=== PATIENT | female | born 1950 | race Caucasian/White ===

== ENCOUNTER → 2017-04-27 | Outpatient (CLI) | payer MEDICARE, MEDICAID ==
--- NOTE | 2017-04-27 18:40 | WOMENS IMAGING REPORT ---
EXAM DESCRIPTION: 3D SCREENING MAMMO BILAT COMPLETED DATE/TIME: 04/27/2017 10:08 am REASON FOR STUDY: ROUTINE SCREENING; Z12.31 Z12.31 ENCNTR SCREEN MAMMOGRAM FOR MALIGNANT NEOPLASM O F GIBSON COMPARISON: Multiple since 2009 TECHNIQUE: Standard craniocaudal and mediolateral oblique views of each breast recorded using digita l acquisition and breast tomosynthesis. LIMITATIONS: None. FINDINGS: Findings present which are benign by mammographic criteria. No suspicious masses, calcifi cations or architectural distortion. Pertinent benign findings: Old stereotactic biopsy clip lower inner quadrant left breast. Benign kat ateral breast parenchymal and skin calcifications Read with the assistance of CAD. .[facility] - R2 Cenova Version 1.3 .[facility] - R2 Cenova Version 1.3 .[facility] - R2 Cenova Version 2.4 .[facility] [place] - R2 Cenova Version 2.4 .[facility] - R2 Literacy Specialist Version 9.2 Benign mammographic findings may include one or more of the following: Smooth masses, popcorn/rim/co arse calcifications, asymmetries, post-procedure changes, and lesions with long-standing stability. IMPRESSION: BENIGN MAMMOGRAPHIC FINDINGS. BIRADS 2 BREAST DENSITY: a. The breasts are almost entirely fatty. BIRAD: 2 BENIGN FINDING(S) RECOMMENDATION: RECOMMENDATION: ROUTINE SCREENING Please continue yearly bilateral screening tomosynthesis in April 2018 COMMENT: The patient has been notified of the results by letter per MQSA requirements. Additional no tification policies are in place for contacting patient with suspicious or incomplete findings. Quality ID #225: The [employer] recommends an annual screening mammogram for women aged 40 years or over. This facility utilizes a reminder system to ensure that all patients receive reminder letters, and/or direct phone calls for appointments. This includes reminders for routine scr eening mammograms, diagnostic mammograms, or other Breast Imaging Interventions when appropriate. Th is patient will be placed in the appropriate reminder system. The [employer] (ACR) has developed recommendations for screening MRI of the breast s in certain patient populations, to be used in conjunction with mammography. Breast MRI surveillanc e may be appropriate for women with more than 20% lifetime risk of developing breast cancer as deter mined by genetic testing, significant family history of the disease, or history of mantle radiation f or Hodgkins Disease. ACR Practice Guidelines 2008. DBT Technology DBT is a type of tomographic mammography. With conventional mammography, overlapping breast tissue ma y make lesions difficult to detect, even with good compression. DBT uses an x-ray tube that rotates a round the breast, taking images at different angles. These images are then combined to create thin sl ices of the breast that the radiologist can view as a 3D reconstruction. The Hologic unit can perform full-field digital mammograms (2D imaging); or DBT (3D imaging); or both, in a combination mode that quickly performs both the mammogram and the tomosynthesis scan while the breast is still compressed. PQRS 6045F: Fluoroscopic imaging is not utilized for breast tomosynthesis. TECHNICAL DOCUMENTATION: FINDING NUMBER: (1) ASSESSMENT: (1) JOB ID: [id number] [employer]- All Rights Reserved
== END ==
LOC: WI 09:36
PROVIDERS: ATTEND Internal Medicine
DX: Z12.31 Encounter for screening mammogram for malignant neoplasm of breast (principal)
CPT/HCPCS: 77063; G0202; 77067

== ENCOUNTER 2017-06-30 08:18 | Day surgery (SDC) | payer MEDICARE, MEDICAID ==
[~2017-06-30 08:18] MED LIST: CHONDR SU A NA/HYALUR INTRAOC KIT (SURGICARE) ONE; EPINEPHRINE INJ/PF 1 MG/1 ML AMPULE ONE; KETOROLAC TROMETHAMINE 0.45% 4 DROP/0.4 ML DROPERETTE OS PRN; LIDOCAINE 1% INJ-PF (10 MG/ML) 30 ML SDV ONE
[2017-06-30] MEDS: CYCLOPENTOLATE 0.2%/PHENYLEPHRINE 1% OPH SOLN 2 ML OS PRN ×3 (08:32→08:59)
[2017-06-30] MEDS: TROPICAMIDE 1% OPH SOLN 3 ML OS PRN ×3 (08:32→08:59)
[2017-06-30] MEDS: BESIFLOXACIN HCL 0.6% OPH SUSP 5 ML BOTTLE OS PRN ×4 (08:33→09:23)
[2017-06-30] MEDS: TETRACAINE HCL 0.5% OPH SOLN 2 ML OS PRN ×3 (08:34→09:01)
[2017-06-30] MEDS ORDERED: FENTANYL CITRATE INJ/PF 100 MCG/2 ML AMPUL ONE (08:46)
[2017-06-30] MEDS ORDERED: MIDAZOLAM 2 MG/2 ML INJ ONE (08:46)
--- NOTE | 2017-06-30 22:03 | [facility] DISCHARGE SUMMARY E ---
[facility] Discharge Summary NAME: JOSE JUAN DON AGE: 66Y ADMITTED: 06/30/2017 DISCHARGED: 06/30/2017 HOSPITAL COURSE: This is a 66-year-old patient who underwent cataract extraction of the left eye. DIAGNOSIS: CATARACT, LEFT EYE. She underwent surgery because she was having difficulty seeing small print. DISCHARGE INSTRUCTIONS: She should be on a regular diet. No bending at her waist, no heavy lifting. She should use Besivance, Ilevro, and Durezol at 3 p.m. and 8 p.m. and sleep with a rigid shield. I will see her for her 1 day postoperative tomorrow. DICTATING PHYSICIAN: KWADWO KELLEY M.D. [id number] PHY#: [id number] 2012 ID: [id number] JOB#: [id number] ACCT: [id number] cc:KWADWO KELLEY M.D. >
--- NOTE | 2017-06-30 22:03 | [facility] OPERATIVE REPORT E ---
[facility] Operative Report NAME: JOSE JUAN DON AGE: 66Y DATE OF SURGERY: 06/30/2017 ROOM: PREOPERATIVE DIAGNOSIS: CATARACT, LEFT EYE. POSTOPERATIVE DIAGNOSIS: CATARACT, LEFT EYE. OPERATION: Cataract extraction with intraocular lens implant of the left eye. SURGEON: KWADWO KELLEY M.D. ANESTHESIA: Topical. PROCEDURE: After obtaining appropriate consent, the patient's left eye was prepped and draped in sterile fashion as well as the surgeon in a sterile manner and cataract surgery was started. First a paracentesis blade was used to make a small side-port incision. Viscoelastic was used to inflate the anterior chamber. Next a 2.4 mm incision was made with the paracentesis blade. A continuous capsulorrhexis incision was made using a cystotome and Utrata forceps. Following this hydrodissection was carried out to make the lens fully loose and mobile and it was rotated 90 degrees. Following this, a ikdbjo-wms-fhgobac technique was used to phacoemulsify the lens with a CDE of 7.02. The remaining cortex was removed with irrigation/aspiration. Provisc was instilled into the capsular bag to inflate the bag. A SN60WF, 15.5 diopter lens was placed. The remaining viscoelastic material was removed with irrigation/aspiration. Following this, a 10-0 nylon suture was used to close the incision and it was found to be watertight. Vigamox was instilled in the eye and a protective shield was placed over the eye. The patient returned to the postoperative recovery in stable condition. DICTATING PHYSICIAN: KWADWO KELLEY M.D. [id number] PHY#: [id number] 2012 ID: [id number] JOB#: [id number] ACCT: [id number] cc:KWADWO KELLEY M.D. >
== END 2017-06-30 10:05 | disposition home or self-care (01) ==
LOC: SC 08:18
PROVIDERS: ATTEND Internal Medicine
PROC: 08RK3JZ Replacement of Left Lens with Synthetic Substitute, Percutaneous Approach (ICD-10-PCS; principal; 2017-06-30 09:00)
DX: H25.13 Age-related nuclear cataract, bilateral (principal); M19.90 Unspecified osteoarthritis, unspecified site; I10 Essential (primary) hypertension; E78.00 Pure hypercholesterolemia, unspecified; E11.9 Type 2 diabetes mellitus without complications; H40.023 Open angle with borderline findings, high risk, bilateral; Z79.899 Other long term (current) drug therapy; Z79.4 Long term (current) use of insulin; Z79.84 Long term (current) use of oral hypoglycemic drugs
CPT/HCPCS: 66984; 82962; V2632; J2250; J3490 ×2; A9270; J0171; J3010; 142

== ENCOUNTER 2017-07-21 07:06 | Day surgery (SDC) | payer MEDICARE, MEDICAID ==
[~2017-07-21 07:06] MED LIST changes: -CHONDR SU A NA/HYALUR INTRAOC KIT (SURGICARE) ONE; -EPINEPHRINE INJ/PF 1 MG/1 ML AMPULE ONE; +KETOROLAC TROMETHAMINE 0.45% 4 DROP/0.4 ML DROPERETTE OD PRN; -KETOROLAC TROMETHAMINE 0.45% 4 DROP/0.4 ML DROPERETTE OS PRN; -LIDOCAINE 1% INJ-PF (10 MG/ML) 30 ML SDV ONE
[2017-07-21] MEDS ORDERED: EPINEPHRINE INJ/PF 1 MG/1 ML AMPULE ONE (07:35)
[2017-07-21] MEDS ORDERED: CHONDR SU A NA/HYALUR INTRAOC KIT (SURGICARE) ONE (07:36)
[2017-07-21] MEDS ORDERED: LIDOCAINE 1% INJ-PF (10 MG/ML) 30 ML SDV ONE (07:36)
[2017-07-21] MEDS: TETRACAINE HCL 0.5% OPH SOLN 2 ML OD PRN ×3 (08:10→08:53)
[2017-07-21] MEDS: TROPICAMIDE 1% OPH SOLN 3 ML OD PRN ×3 (08:11→08:34)
[2017-07-21] MEDS: CYCLOPENTOLATE 0.2%/PHENYLEPHRINE 1% OPH SOLN 2 ML OD PRN ×3 (08:11→08:34)
[2017-07-21] MEDS: BESIFLOXACIN HCL 0.6% OPH SUSP 5 ML BOTTLE OD PRN ×3 (08:12→09:13)
[2017-07-21] MEDS ORDERED: MIDAZOLAM 2 MG/2 ML INJ ONE (08:38)
--- NOTE | 2017-07-21 16:34 | [facility] OPERATIVE REPORT E ---
[facility] Operative Report NAME: JOSE JUAN DON AGE: 66Y DATE OF SURGERY: 07/21/2017 ROOM: PREOPERATIVE DIAGNOSIS: CATARACT, RIGHT EYE. POSTOPERATIVE DIAGNOSIS: CATARACT, RIGHT EYE. OPERATION: Cataract extraction with intraocular lens implant of the right eye. SURGEON: KWADWO KELLEY M.D. ANESTHESIA: Topical. TISSUE REMOVED OR ALTERED: *------* PROCEDURE: After obtaining appropriate consent, the patient's right eye was prepped and draped in sterile fashion as well as the surgeon in a sterile manner and cataract surgery was started. First a paracentesis blade was used to make a small side-port incision. Viscoelastic was used to inflate the anterior chamber. Next a 2.4 mm incision was made with the paracentesis blade. A continuous capsulorrhexis incision was made using a cystotome and Utrata forceps. Following this hydrodissection was carried out to make the lens fully loose and mobile and it was rotated 90 degrees. Following this, a abugox-zzu-pwnsiah technique was used to phacoemulsify the lens with a CDE of 6.25. The remaining cortex was removed with irrigation/aspiration. Provisc was instilled into the capsular bag to inflate the bag. A SN60WF, 15.0 diopter lens was placed. The remaining viscoelastic material was removed with irrigation/aspiration. Following this, a 10-0 nylon suture was used to close the incision and it was found to be watertight. Vigamox was instilled in the eye and a protective shield was placed over the eye. The patient returned to the postoperative recovery in stable condition. DICTATING PHYSICIAN: KWADWO KELLEY M.D. [id number] PHY#: [id number] ID: [id number] JOB#: [id number] ACCT: [id number] cc:KWADWO KELLEY M.D. >
--- NOTE | 2017-07-21 17:59 | DISCHARGE SUMMARY E ---
Discharge Summary NAME: JOSE JUAN DON : 1950 AGE: 66Y ADMITTED: 07/21/2017 DISCHARGED:07/21/2017 This is a 66-year-old female who underwent cataract extraction of the right eye. DIAGNOSIS: Cataract, right eye. INDICATIONS: She underwent surgery because she was having difficulty driving due to glare from headlights. DISCHARGE INSTRUCTIONS: She should be on a regular diet. No bending at her waist. No heavy lifting. She should use her Besivance, Ilevro, and Durezol at 3:00 p.m. and 8:00 p.m. and sleep with a rigid shield, and I will see her for 1 day postoperative tomorrow. DICTATING PHYSICIAN: KWADWO KELLEY M.D. [id number] PHY#: [id number] ID: [id number] JOB#: [id number] ACCT: [id number] cc:KWADWO KELLEY M.D. >
== END 2017-07-21 09:52 | disposition home or self-care (01) ==
LOC: SC 07:06
PROVIDERS: ATTEND Internal Medicine
PROC: 08RJ3JZ Replacement of Right Lens with Synthetic Substitute, Percutaneous Approach (ICD-10-PCS; principal; 2017-07-21 09:00)
DX: H25.11 Age-related nuclear cataract, right eye (principal); Z96.1 Presence of intraocular lens; I10 Essential (primary) hypertension; E11.9 Type 2 diabetes mellitus without complications; E66.9 Obesity, unspecified; Z79.899 Other long term (current) drug therapy; Z79.84 Long term (current) use of oral hypoglycemic drugs; Z79.4 Long term (current) use of insulin; Z68.41 Body mass index [BMI] 40.0-44.9, adult
CPT/HCPCS: 66984; 82962; V2632; J2250; J3490 ×2; A9270; J0171; 142

== ENCOUNTER → 2017-09-23 | Outpatient (CLI) | payer MEDICARE, MEDICAID ==
--- NOTE | 2017-09-23 14:54 | RADIOLOGY REPORT (SQ) ---
EXAM DESCRIPTION: BONE SURVEY COMPLETE COMPLETED DATE/TIME: 09/23/2017 2:18 pm REASON FOR STUDY: MONOCLONAL GAMMOPATHY (D47.2) D47.2 MONOCLONAL GAMMOPATHY COMPARISON: None. TECHNIQUE: Images of the axial and proximal appendicular skeleton are obtained, along with lateral s kull and frontal chest films. LIMITATIONS: None. FINDINGS: Bones are osteopenic. No lytic or sclerotic lesions are identified. AP CHEST: No bony findings. Lungs are clear. LATERAL SKULL: No worrisome bone lesions. AP BOTH HUMERI: No worrisome bone lesions. Old healed left humeral head fracture. TWO-VIEW LUMBAR SPINE: No worrisome bone lesions.Chronic appearing central upper endplate depression at L1 without overall loss of height TWO-VIEW THORACIC SPINE: No worrisome bone lesions. Diffuse thoracic spine disc space narrowing and anterior osteophyte formation. No compression deformities TWO VIEW CERVICAL SPINE: No worrisome bone lesions. Benign peripherally calcified left lower lobe t hyroid cyst about 1 cm in size. Degenerative disc changes with disc space loss of height and anterio r osteophyte formation at C5-6. AP PELVIS: No worrisome bone lesions. AP BOTH FEMURS: No worrisome bone lesions. OTHER: Surgical clips post gastric bypass. Bilateral knee medial compartment joint space narrowing. IMPRESSION: NO WORRISOME BONE LESIONS. TECHNICAL DOCUMENTATION: JOB ID: [id number] [employer]- All Rights Reserved Reading location - IP/workstation name: [email or web address]
== END ==
LOC: RAD 13:54
PROVIDERS: ATTEND Internal Medicine
DX: D47.2 Monoclonal gammopathy (principal); M47.892 Other spondylosis, cervical region; M48.04 Spinal stenosis, thoracic region
CPT/HCPCS: 77075

== ENCOUNTER 2017-09-26 08:28 | Day surgery (SDC) | payer MEDICARE, MEDICAID ==
[2017-09-26 10:17] LABS: HEMATOCRIT 24.8 % (36.0-47.0); HEMOGLOBIN 8.7 g/dL (12.0-15.5); MEAN CORPUSCULAR HEMOGLOBIN 34.6 pg (27.0-33.4); MEAN CORPUSCULAR HGB CONC 35.1 g/dL (32.0-36.0); PLATELET COUNT 293 10^3/uL (150-450); RED BLOOD COUNT 2.52 10^6/uL (3.72-5.28); RED CELL DISTRIBUTION WIDTH 17.8 % (11.5-14.0)
[2017-09-26 10:27] LABS: INTERNATIONAL RATION (INR) 1.02
[2017-09-26 10:42] LABS: BLOOD UREA NITROGEN 18 mg/dL (7-20); GLUCOSE 136 mg/dL (75-110)
[2017-09-26 10:58] LABS: MEAN CORPUSCULAR VOLUME 99 fl (80-97)
[2017-09-26] MEDS ORDERED: MIDAZOLAM 2 MG/2 ML INJ ONE (11:06)
[2017-09-26] MEDS ORDERED: FENTANYL CITRATE INJ/PF 100 MCG/2 ML AMPUL ONE (11:06)
[2017-09-26] MEDS ORDERED: LIDOCAINE 1% INJ-PF (10 MG/ML) 30 ML SDV ONE (11:07)
--- NOTE | 2017-09-26 13:27 | RADIOLOGY REPORT (SQ) ---
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 CT Fluoroscopy Time: 3.[address] scanners at this facility use dose modulation, iterative reconstruction, and/or weight based d osing when appropriate to reduce radiation dose to as low as reasonably achievable (ALARA). [facility]: Dose Right [facility]: CareDose [facility]: Dose Right [facility]: Teradose 4D [facility]: [employer] RADIATION DOSE: mGy. FINDINGS: The procedure was discussed with the patient and the patient agreed to the procedure. Prio r to the procedure, a time out was performed to verify the patient's identity and planned procedure. IV sedation was administered and physician direction by the registered nurse using 1 milligrams of Ve rsed and 75 micrograms of fentanyl. Physiologic monitoring was provided before, during, and after sed ation. The total sedation time was 40 minutes minutes. Documentation face to face time, the performing proceduralist, spent monitoring the patient: [address] scanning was performed to localize the percutaneous site for the biopsy approach. After sterile skin prep and local lidocaine for skin and deep tissue anesthesia, a coaxial biopsy nee dle was used to obtain a bone marrow aspirate, and a bone marrow core of tissue. The biopsy tissue wa s received by Dr. Guzman's nurse to be sent out for evaluation. There were no immediate complication s. Pathology is pending at the time of dictation. IMPRESSION: CT GUIDED ASPIRATE AND CORE BIOPSY OF THE RIGHT POSTERIOR ILIAC CREST BONE MARROW PERFOR MED WITHOUT IMMEDIATE COMPLICATION. PATHOLOGY PENDING. IV CONSCIOUS SEDATION WITHOUT COMPLICATION. COMMENT: Quality ID 145: Final reports for procedures using fluoroscopy that document radiation exp osure indices, or exposure time and number of fluorographic images (if radiation exposure indices are not available) Patient medication list reviewed: Yes- Quality ID# [id number]:Eligible professional attests to documenting i n the medical record they obtained, updated, or reviewed the patient's current medications.. TECHNICAL DOCUMENTATION: JOB ID: [id number] Quality ID# 436: Final reports with documentation of one or more dose reduction techniques (e.g., Aut omated exposure control, adjustment of the mA and/or kV according to patient size, use of iterative r econstruction technique) 2010 [employer]- All Rights Reserved Reading location - IP/workstation name: [email or web address]
--- NOTE | 2017-09-26 13:27 | RADIOLOGY REPORT (SQ) ---
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 CT Fluoroscopy Time: 3.[address] scanners at this facility use dose modulation, iterative reconstruction, and/or weight based d osing when appropriate to reduce radiation dose to as low as reasonably achievable (ALARA). [facility]: Dose Right [facility]: CareDose [facility]: Dose Right [facility]: Teradose 4D [facility]: [employer] RADIATION DOSE: mGy. FINDINGS: The procedure was discussed with the patient and the patient agreed to the procedure. Prio r to the procedure, a time out was performed to verify the patient's identity and planned procedure. IV sedation was administered and physician direction by the registered nurse using 1 milligrams of Ve rsed and 75 micrograms of fentanyl. Physiologic monitoring was provided before, during, and after sed ation. The total sedation time was 40 minutes minutes. Documentation face to face time, the performing proceduralist, spent monitoring the patient: [address] scanning was performed to localize the percutaneous site for the biopsy approach. After sterile skin prep and local lidocaine for skin and deep tissue anesthesia, a coaxial biopsy nee dle was used to obtain a bone marrow aspirate, and a bone marrow core of tissue. The biopsy tissue wa s received by Dr. Guzman's nurse to be sent out for evaluation. There were no immediate complication s. Pathology is pending at the time of dictation. IMPRESSION: CT GUIDED ASPIRATE AND CORE BIOPSY OF THE RIGHT POSTERIOR ILIAC CREST BONE MARROW PERFOR MED WITHOUT IMMEDIATE COMPLICATION. PATHOLOGY PENDING. IV CONSCIOUS SEDATION WITHOUT COMPLICATION. COMMENT: Quality ID 145: Final reports for procedures using fluoroscopy that document radiation exp osure indices, or exposure time and number of fluorographic images (if radiation exposure indices are not available) Patient medication list reviewed: Yes- Quality ID# 130:Eligible professional attests to documenting i n the medical record they obtained, updated, or reviewed the patient's current medications.. TECHNICAL DOCUMENTATION: JOB ID: [id number] Quality ID# 436: Final reports with documentation of one or more dose reduction techniques (e.g., Aut omated exposure control, adjustment of the mA and/or kV according to patient size, use of iterative r econstruction technique) 2010 [employer]- All Rights Reserved Reading location - IP/workstation name: [facility]
[2017-09-26 14:57] VITALS: BP 128/62
== END 2017-09-26 14:05 | disposition home or self-care (01) ==
LOC: RAD 08:28
PROVIDERS: ATTEND Internal Medicine
DX: D47.2 Monoclonal gammopathy (principal); D64.9 Anemia, unspecified; Z79.899 Other long term (current) drug therapy; Z79.01 Long term (current) use of anticoagulants
CPT/HCPCS: 36415; 84520; 82565; 82947; 85027; 85610; 85730; 38221; 77012; J2250; J3010; J3490

== ENCOUNTER → 2018-05-17 | Outpatient (CLI) | payer MEDICARE, MEDICAID ==
--- NOTE | 2018-05-17 09:41 | RADIOLOGY REPORT (SQ) ---
EXAM DESCRIPTION: CT CHEST WITH; CT ABD/PELVIS WITH IV ORAL COMPLETED DATE/TIME: 05/17/2018 9:07 am REASON FOR STUDY: UNSPEC ABD PAIN (R10.9), PELVIC PAIN (R10.2), CHEST PAIN (R07.9) R10.9 UNSPECIFIE D ABDOMINAL PAIN R10.2 PELVIC AND PERINEAL PAIN R07.9 CHEST PAIN, UNSPECIFIED COMPARISON: None. CONTRAST TYPE AND DOSE: contrast/concentration: Isovue 350.00 mg/ml; Total Contrast Delivered: 100.0 ml; Total Saline Delivered: 72.0 ml RENAL FUNCTION: 1.3 creatinine TECHNIQUE: CT scan of the chest performed using helical scanning technique with dynamic intravenous contrast injection. Images reviewed with lung, soft tissue and bone windows. Reconstructed coronal a nd sagittal MPR images reviewed. All images stored on PACS. CT scan of the abdomen and pelvis performed with intravenous and with oral contrastusing helical scan galilea technique with dynamic intravenous contrast injection. Images reviewed with lung, soft tissue a nd bone windows. Reconstructed coronal and sagittal MPR images reviewed. Delayed images for evaluat ion of the urinary system also acquired and evaluated. All images stored on PACS. All CT scanners at this facility use dose modulation, iterative reconstruction, and/or weight based d osing when appropriate to reduce radiation dose to as low as reasonably achievable (ALARA). [facility]: Dose Right [facility]: CareDose [facility]: Dose Right [facility]: Teradose 4D [facility]: [employer] RADIATION DOSE: CT Rad equipment meets quality standard of care and radiation dose reduction techniq ues were employed. CTDIvol: 21.8 - 28.4 mGy. DLP: 3822 mGy-cm. . LIMITATIONS: None. FINDINGS: CHEST: LUNGS AND PLEURA: No opacities, nodules, masses. No pneumothorax. No effusions. HILAR AND MEDIASTINAL STRUCTURES: No identified masses or abnormal nodes. HEART AND VASCULAR STRUCTURES: No aneurysm or dissection. No central pulmonary emboli. No pericardi al effusion. HARDWARE: None. THYROID AND OTHER SOFT TISSUES: Normal size but nodular thyroid with small calcified masses. BONES: No significant finding. OTHER: No other significant finding. ABDOMEN AND PELVIS: LIVER: Normal size. No masses. No dilated ducts. SPLEEN: Enlarged at almost 17 cm craniocaudal. No mass evident. PANCREAS: 1.3 cm circumscribed low-density probable cyst along the pancreatic tail. No duct dilatati on. Pancreas otherwise unremarkable. No regional inflammatory changes. GALLBLADDER: Surgically absent. ADRENAL GLANDS: No significant masses or asymmetry. RIGHT KIDNEY AND URETER: No solid masses. No significant calcification. No hydronephrosis or hydroure ter. LEFT KIDNEY AND URETER: No solid masses. No significant calcification. No hydronephrosis or hydrouret er. AORTA AND VESSELS: No aneurysm. No dissection. Renal arteries, SMA, celiac without stenosis. RETROPERITONEUM: No retroperitoneal adenopathy, hemorrhage or masses. BOWEL AND PERITONEAL CAVITY: Status post gastric bypass. Diverticulosis in the distal colon but no a ctive diverticulitis suggested. No small bowel obstruction. No ascites or abnormal gas. APPENDIX: Normal. ABDOMINAL WALL: No masses. No hernias. PELVIS: No mass or free fluid. Normal bladder. BONES: No suggestion of acute fracture or bone lesion. Osteopenic. Spondylosis. OTHER: No other significant finding. IMPRESSION: 1. No acute or suspicious thoracic abnormality allowing for nodular thyroid. Ultrasound if warranted . 2. Small cystic mass along the pancreatic tail. This measures just over 1 cm. The pancreas is other joiner normal. Given the patient's age and the size of the lesion, consider surveillance imaging at 2 year intervals out to 10 years. Ideally, this would be performed with pancreatic protocol CT or MRI. 3. Splenomegaly. 4. Other findings as above. TECHNICAL DOCUMENTATION: JOB ID: [id number] Quality ID # 436: Final reports with documentation of one or more dose reduction techniques (e.g., Au tomated exposure control, adjustment of the mA and/or kV according to patient size, use of iterative reconstruction technique) 2010 [employer]- All Rights Reserved Reading location - IP/workstation name: [email or web address]
[2018-05-23 09:18] LABS: HEMATOCRIT 26.4 % (36.0-47.0); HEMOGLOBIN 9.4 g/dL (12.0-15.5); MEAN CORPUSCULAR HEMOGLOBIN 34.1 pg (27.0-33.4); MEAN CORPUSCULAR HGB CONC 35.8 g/dL (32.0-36.0); PLATELET COUNT 360 10^3/uL (150-450); RED BLOOD COUNT 2.77 10^6/uL (3.72-5.28); RED CELL DISTRIBUTION WIDTH 17.1 % (11.5-14.0); WHITE BLOOD COUNT 5.7 10^3/uL (4.0-10.5)
[2018-05-23 09:23] LABS: INTERNATIONAL RATION (INR) 1.02; PROTHROMBIN TIME 13.9 SEC (11.4-15.4)
[2018-05-23 09:30] LABS: MEAN CORPUSCULAR VOLUME 95 fl (80-97)
[2018-05-23 09:41] LABS: BLOOD UREA NITROGEN 28 mg/dL (7-20)
[2018-05-31 07:06] VITALS: BP 140/68
== END ==
LOC: RAD 08:07
PROVIDERS: ATTEND Internal Medicine
DX: R10.9 Unspecified abdominal pain (principal); R10.2 Pelvic and perineal pain; R07.9 Chest pain, unspecified
CPT/HCPCS: 36415; 71260; 74177; 82565; 84520; 85027; 85610; 85730

== ENCOUNTER 2018-05-23 08:42 | Day surgery (SDC) | payer MEDICARE, MEDICAID ==
[2018-05-23] MEDS ORDERED: FENTANYL CITRATE INJ/PF 100 MCG/2 ML AMPUL ONE (10:52)
[2018-05-23] MEDS ORDERED: LIDOCAINE 1% INJ-PF (10 MG/ML) 30 ML SDV ONE (10:52)
[2018-05-23] MEDS ORDERED: MIDAZOLAM 2 MG/2 ML INJ ONE (10:52)
--- NOTE | 2018-05-23 12:05 | RADIOLOGY REPORT (SQ) ---
EXAM DESCRIPTION: CT BIOPSY BONE MARROW, NEEDLE; CT NEEDLE PLACEMENT COMPLETED DATE/TIME: 05/23/2018 11:31 am REASON FOR STUDY: MONOCLONAL GAMMOPATHY; MONOCLONAL GAMMOPATHY, BONE MARROW BX D47.2 MONOCLONAL SANIYA MOPATHY COMPARISON: None. TECHNIQUE: CT guided biopsy of the right iliac crest bone marrow performed with conscious sedation. CT Fluoroscopy Time: [address] scanners at this facility use dose modulation, iterative reconstruction, and/or weight based d osing when appropriate to reduce radiation dose to as low as reasonably achievable (ALARA). [facility]: Dose Right [facility]: CareDose [facility]: Dose Right [facility]: Teradose 4D [facility]: [employer] RADIATION DOSE: CT Rad equipment meets quality standard of care and radiation dose reduction techniq ues were employed. CTDIvol: 4.0 - 20.1 mGy. DLP: 386 mGy-cm.mGy. FINDINGS: After obtaining informed consent and explaining the risks and benefits of conscious sedati on,the patient agreed to the procedure. Prior to the procedure, a time out was performed to verify th e patient's identity and planned procedure. IV conscious sedation was administered and physician direction by the registered nurse using 1 millig kate of Versed and 75 micrograms of fentanyl. Physiologic monitoring was provided before, during, and after sedation. The total sedation time was 30 minutes. Documentation face to face time, the performing proceduralist, spent monitoring the patient: [address] scanning was performed to localize the percutaneous site for the biopsy approach. After sterile skin prep and local lidocaine for skin and deep tissue anesthesia, a coaxial biopsy nee dle was used to obtain a bone marrow aspirate, and a bone marrow core of tissue. The biopsy tissue wa s received by Dr. Guzman's nurse to be sent out for evaluation. There were no immediate complication s. Pathology is pending at the time of dictation. IMPRESSION: CT GUIDED ASPIRATE AND CORE BIOPSY OF THE RIGHT POSTERIOR ILIAC CREST BONE MARROW PERFOR MED WITHOUT IMMEDIATE COMPLICATION. PATHOLOGY PENDING. IV CONSCIOUS SEDATION WITHOUT COMPLICATION. COMMENT: Quality ID 145: Final reports for procedures using fluoroscopy that document radiation exp osure indices, or exposure time and number of fluorographic images (if radiation exposure indices are not available) Patient medication list reviewed: Yes- Quality ID# [id number]:Eligible professional attests to documenting i n the medical record they obtained, updated, or reviewed the patient's current medications.. TECHNICAL DOCUMENTATION: JOB ID: [id number] Quality ID# 436: Final reports with documentation of one or more dose reduction techniques (e.g., Aut omated exposure control, adjustment of the mA and/or kV according to patient size, use of iterative r econstruction technique) 2010 [employer]- All Rights Reserved Reading location - IP/workstation name: [facility]
--- NOTE | 2018-05-23 12:05 | RADIOLOGY REPORT (SQ) ---
EXAM DESCRIPTION: CT BIOPSY BONE MARROW, NEEDLE; CT NEEDLE PLACEMENT COMPLETED DATE/TIME: 05/23/2018 11:31 am REASON FOR STUDY: MONOCLONAL GAMMOPATHY; MONOCLONAL GAMMOPATHY, BONE MARROW BX D47.2 MONOCLONAL SANIYA MOPATHY COMPARISON: None. TECHNIQUE: CT guided biopsy of the right iliac crest bone marrow performed with conscious sedation. CT Fluoroscopy Time: [address] scanners at this facility use dose modulation, iterative reconstruction, and/or weight based d osing when appropriate to reduce radiation dose to as low as reasonably achievable (ALARA). [facility]: Dose Right [facility]: CareDose [facility]: Dose Right [facility]: Teradose 4D [facility]: aCon RADIATION DOSE: CT Rad equipment meets quality standard of care and radiation dose reduction techniq ues were employed. CTDIvol: 4.0 - 20.1 mGy. DLP: 386 mGy-cm.mGy. FINDINGS: After obtaining informed consent and explaining the risks and benefits of conscious sedati on,the patient agreed to the procedure. Prior to the procedure, a time out was performed to verify th e patient's identity and planned procedure. IV conscious sedation was administered and physician direction by the registered nurse using 1 millig kate of Versed and 75 micrograms of fentanyl. Physiologic monitoring was provided before, during, and after sedation. The total sedation time was 30 minutes. Documentation face to face time, the performing proceduralist, spent monitoring the patient: [address] scanning was performed to localize the percutaneous site for the biopsy approach. After sterile skin prep and local lidocaine for skin and deep tissue anesthesia, a coaxial biopsy nee dle was used to obtain a bone marrow aspirate, and a bone marrow core of tissue. The biopsy tissue wa s received by Dr. Guzman's nurse to be sent out for evaluation. There were no immediate complication s. Pathology is pending at the time of dictation. IMPRESSION: CT GUIDED ASPIRATE AND CORE BIOPSY OF THE RIGHT POSTERIOR ILIAC CREST BONE MARROW PERFOR MED WITHOUT IMMEDIATE COMPLICATION. PATHOLOGY PENDING. IV CONSCIOUS SEDATION WITHOUT COMPLICATION. COMMENT: Quality ID [id number]: Final reports for procedures using fluoroscopy that document radiation exp osure indices, or exposure time and number of fluorographic images (if radiation exposure indices are not available) Patient medication list reviewed: Yes- Quality ID# [id number]:Eligible professional attests to documenting i n the medical record they obtained, updated, or reviewed the patient's current medications.. TECHNICAL DOCUMENTATION: JOB ID: [id number] Quality ID# [id number]: Final reports with documentation of one or more dose reduction techniques (e.g., Aut omated exposure control, adjustment of the mA and/or kV according to patient size, use of iterative r econstruction technique) 2010 [employer]- All Rights Reserved Reading location - IP/workstation name: [facility]
[2018-05-26 15:57] VITALS: BP 136/65
== END 2018-05-23 14:45 | disposition home or self-care (01) ==
LOC: RAD 08:42
PROVIDERS: ATTEND Internal Medicine
DX: D47.2 Monoclonal gammopathy (principal); D64.9 Anemia, unspecified
CPT/HCPCS: 82962; 38221; 77012; J2250; J3010; J3490

== ENCOUNTER 2018-07-24 12:00 | Outpatient (CLI) | payer MEDICARE, MEDICAID ==
[~2018-07-24 12:00] MED LIST changes: +ACETAMINOPHEN 325 MG TABLET PO PRN; +DIPHENHYDRAMINE HCL 25 MG CAPSULE PO PRN; +FUROSEMIDE INJ/PF 20 MG/2 ML SDV IV PRN; -KETOROLAC TROMETHAMINE 0.45% 4 DROP/0.4 ML DROPERETTE OD PRN
[2018-07-24 13:17] LABS: HEMATOCRIT 20.8 % (36.0-47.0); MEAN CORPUSCULAR HEMOGLOBIN 33.4 pg (27.0-33.4); MEAN CORPUSCULAR HGB CONC 35.1 g/dL (32.0-36.0); MEAN CORPUSCULAR VOLUME 95 fl (80-97); PLATELET COUNT 307 10^3/uL (150-450); RED BLOOD COUNT 2.19 10^6/uL (3.72-5.28); RED CELL DISTRIBUTION WIDTH 18.3 % (11.5-14.0); WHITE BLOOD COUNT 5.1 10^3/uL (4.0-10.5)
[2018-07-24 13:19] LABS: HEMOGLOBIN 7.3 g/dL (12.0-15.5)
[2018-07-24] MEDS ORDERED: NORMAL SALINE 250 ML IV PRN (13:30)
[2018-07-24 21:46] VITALS: BP 162/78
== END 2018-07-24 21:55 | disposition home or self-care (01) ==
LOC: II 12:00 → 2N 12:08 → II 21:55
PROVIDERS: ATTEND Internal Medicine
PROC: 30233N1 Transfusion of Nonautologous Red Blood Cells into Peripheral Vein, Percutaneous Approach (ICD-10-PCS; principal; 2018-07-24)
DX: D64.9 Anemia, unspecified (principal)
CPT/HCPCS: 86900; 86901; 36415; 36430; 86850; 86920; P9016; A9270 ×2; J7050

== ENCOUNTER 2018-12-11 11:52 | Outpatient (CLI) | payer MEDICARE, MEDICAID ==
[2018-12-11 12:27] LABS: HEMATOCRIT 19.8 % (36.0-47.0); MEAN CORPUSCULAR HEMOGLOBIN 37.3 pg (27.0-33.4); MEAN CORPUSCULAR HGB CONC 35.3 g/dL (32.0-36.0); MEAN CORPUSCULAR VOLUME 106 fl (80-97); PLATELET COUNT 331 10^3/uL (150-450); RED BLOOD COUNT 1.87 10^6/uL (3.72-5.28); RED CELL DISTRIBUTION WIDTH 15.9 % (11.5-14.0); WHITE BLOOD COUNT 5.5 10^3/uL (4.0-10.5)
[2018-12-11] MEDS ORDERED: NORMAL SALINE 250 ML IV PRN (13:23)
[2018-12-11] MEDS ORDERED: FUROSEMIDE INJ/PF 20 MG/2 ML SDV IV PRN (13:24)
[2018-12-11] MEDS ORDERED: ACETAMINOPHEN 325 MG TABLET PO PRN (13:24)
[2018-12-11] MEDS ORDERED: DIPHENHYDRAMINE HCL 25 MG CAPSULE PO PRN (13:24)
[2018-12-11 21:46] VITALS: BP 146/64
== END 2018-12-11 21:55 | disposition home or self-care (01) ==
LOC: II 11:52 → 4N 11:59 → II 21:55
PROVIDERS: ATTEND Internal Medicine
PROC: 30233N1 Transfusion of Nonautologous Red Blood Cells into Peripheral Vein, Percutaneous Approach (ICD-10-PCS; principal; 2018-12-11)
PROC: 3E033GC Introduction of Other Therapeutic Substance into Peripheral Vein, Percutaneous Approach (ICD-10-PCS; 2018-12-11)
DX: D64.9 Anemia, unspecified (principal)
CPT/HCPCS: 86900; 86901; 36430; 86850; 86920; 96374; P9016; A9270 ×2; J1940

== ENCOUNTER 2019-01-10 07:48 | Outpatient (CLI) | payer MEDICARE, MEDICAID ==
[~2019-01-10 07:48] MED LIST changes: -FUROSEMIDE INJ/PF 20 MG/2 ML SDV IV PRN
[2019-01-10 08:21] LABS: MEAN CORPUSCULAR HEMOGLOBIN 33.6 pg (27.0-33.4); MEAN CORPUSCULAR HGB CONC 34.7 g/dL (32.0-36.0); PLATELET COUNT 315 10^3/uL (150-450); RED BLOOD COUNT 2.06 10^6/uL (3.72-5.28); RED CELL DISTRIBUTION WIDTH 24.3 % (11.5-14.0); WHITE BLOOD COUNT 4.4 10^3/uL (4.0-10.5)
[2019-01-10 08:24] LABS: HEMOGLOBIN 6.9 g/dL (12.0-15.5)
[2019-01-10 08:44] LABS: MEAN CORPUSCULAR VOLUME 97 fl (80-97)
[2019-01-10] MEDS ORDERED: NORMAL SALINE 250 ML IV PRN (08:54)
[2019-01-10 13:20] VITALS: BP 128/64
== END 2019-01-10 14:20 | disposition home or self-care (01) ==
LOC: LAB 07:48 → 2N 07:53 → LAB 14:20
PROVIDERS: ATTEND Internal Medicine
PROC: 30233N1 Transfusion of Nonautologous Red Blood Cells into Peripheral Vein, Percutaneous Approach (ICD-10-PCS; principal; 2019-01-10)
DX: N18.9 Chronic kidney disease, unspecified (principal); D63.1 Anemia in chronic kidney disease
CPT/HCPCS: 86900; 86901; 36430; 86850; 86920; P9016; A9270 ×2; J7050

== ENCOUNTER → 2019-02-13 | Outpatient (CLI) | payer MEDICARE, MEDICAID ==
[~2019-02-13] MED LIST changes: -ACETAMINOPHEN 325 MG TABLET PO PRN; -DIPHENHYDRAMINE HCL 25 MG CAPSULE PO PRN; +REGADENOSON INJ 0.4 MG/5 ML DISP.SYRIN IV ONE
--- NOTE | 2019-02-13 19:30 | DRAGON STRESS TEST REPORT ---
Rest/stress single isotope Cardiolite stress imaging using IV Lexiscan and gated SPECT imaging. Indication: Assess exertional chest pains, exertional dyspnea. Clinical history: this 68 years old morbid obese female, height 62 inches, weighing 238 pounds, coronary risk factors of family history NV, hypertension hyper cholesterolemia, diabetes, with current symptomatology of dull chest pains with exercise, and exertional dyspnea but is noted to have a hemoglobin of 8.8 posttransfusion recently, also has supraventricular tachycardia. Report: Patient received IV Lexiscan 0.4 mg infused over 10 seconds and flushed. The resting heart rate was 84 bpm, and increased to 112 bpm at end infusion resting blood pressure was 128/59, and increased to 144/62 at end infusion. The patient has symptoms of flushing but no chest pains and no shortness of breath. The symptoms subsided spontaneously. The resting 12-lead EKG showed normal sinus rhythm 84 bpm, T inversion in the lateral leads seen. 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 At end infusion, no change in lateral T wave inversions. Myocardial perfusion imaging was performed at rest 60 minutes after the injection of 14.59 mCi of Cardiolite. 10 seconds after the IV Lexiscan injection, patient was injected with 45.4 mCi of Cardiolite and flushed. Gated poststress tomographic imaging was performed 60 minutes after stress. Findings: The overall quality of the study is poor, this is due to patient's morbid obesity, severe bilateral breast attenuation, and the nonavailability of soft tissue attenuation software correction which should be used in this type of patient, as the use of a 2-day protocol instead of a 1 day rest-stress protocol. Myocardial perfusion imaging is abnormal. There is a moderate area of IV Lexiscan induced reversible ischemia in the basal inferior wall. There is a much larger fixed perfusion defect in the apical anterior wall, and the basal inferolateral wall. There is severe reduced motion contraction of the apex, apical anterior wall, and basal lateral wall and basal inferior wall. Overall left ventricular systolic function was mildly impaired with LVEF post- stress of 49%, and a TID ratio of 0.91. No prior study for comparison. Impression 1. Technically difficult study due to morbid obesity, nonavailability of soft tissue attenuation software. This reduces the specificity of the imaging results. 2. Suspect multivessel disease, consider left heart catheterization to confirm impression. Dr. Jack Mariscal. [facility]
== END ==
LOC: RAD 06:29
PROVIDERS: ATTEND Internal Medicine Cardiovascular Disease
DX: R07.9 Chest pain, unspecified (principal)
CPT/HCPCS: 93017; 78452; A9500; J2785; Q9969

== ENCOUNTER 2019-03-21 12:21 | Outpatient (CLI) | payer MEDICARE, MEDICAID ==
[~2019-03-21 12:21] MED LIST changes: +ACETAMINOPHEN 325 MG TABLET PO PRN; +DIPHENHYDRAMINE HCL 25 MG CAPSULE PO PRN; +FUROSEMIDE INJ/PF 20 MG/2 ML SDV IV PRN; -REGADENOSON INJ 0.4 MG/5 ML DISP.SYRIN IV ONE
[2019-03-21 12:59] LABS: MEAN CORPUSCULAR HEMOGLOBIN 34.1 pg (27.0-33.4); MEAN CORPUSCULAR HGB CONC 35.3 g/dL (32.0-36.0); MEAN CORPUSCULAR VOLUME 97 fl (80-97); PLATELET COUNT 310 10^3/uL (150-450); RED BLOOD COUNT 2.28 10^6/uL (3.72-5.28); RED CELL DISTRIBUTION WIDTH 21.1 % (11.5-14.0); WHITE BLOOD COUNT 5.8 10^3/uL (4.0-10.5)
[2019-03-21 13:01] LABS: HEMOGLOBIN 7.8 g/dL (12.0-15.5)
[2019-03-21] MEDS ORDERED: NORMAL SALINE 250 ML IV PRN (13:30)
[2019-03-21 17:58] VITALS: BP 141/50
== END 2019-03-21 18:05 | disposition home or self-care (01) ==
LOC: LAB 12:21 → II 12:21 → 2N 12:59 → LAB 12:59 → II 18:05 → LAB 18:05 → EDSTATUS 03-27 10:15
PROVIDERS: ATTEND Internal Medicine
PROC: 30233N1 Transfusion of Nonautologous Red Blood Cells into Peripheral Vein, Percutaneous Approach (ICD-10-PCS; principal; 2019-03-21)
DX: D64.9 Anemia, unspecified (principal)
CPT/HCPCS: 86900; 86901; 36430; 86850; 86920; P9016; A9270 ×2

== ENCOUNTER 2019-05-04 21:43 | Emergency (ER) | payer MEDICARE, MEDICAID ==
--- NOTE | 2019-05-04 22:57 | RADIOLOGY REPORT (SQ) ---
EXAM DESCRIPTION: XR FEMUR 2 VIEWS COMPLETED DATE/TME: 05/04/2019 00:00 CLINICAL HISTORY: 68 years, Female, fall; inability to stand COMPARISON: None. NUMBER OF VIEWS: 4 TECHNIQUE: 4 views of the right femur LIMITATIONS: None. FINDINGS: Osteopenia. Degenerative change of the knee and hip. Negative for acute fracture or dislocation IMPRESSION: No acute osseous abnormality copyright 2010 [employer]- All Rights Reserved
--- NOTE | 2019-05-04 22:58 | RADIOLOGY REPORT (SQ) ---
EXAM DESCRIPTION: XR ANKLE 3 OR MORE VIEWS COMPLETED DATE/TME: 05/04/2019 00:00 CLINICAL HISTORY: 68 years Female ,fall; inability to stand COMPARISON: None. TECHNIQUE: Right ankle, 3 view FINDINGS: No acute fractures or dislocations are identified. No osseous destructive lesions. Large calcaneal spur. Ankle mortise appears intact. No ankle joint effusion noted. IMPRESSION: No acute fracture is identified.
[2019-05-04] MEDS ORDERED: NORMAL SALINE 1000 ML 1,000 ML IV ONE (23:24)
--- NOTE | 2019-05-04 23:31 | ER Document Report ---
ED General - General Chief Complaint: Fall Stated Complaint: FALL Time Seen by Provider: 05/04/19 22:40 Primary Care Provider: LUIS F LECHUGA MD [Primary Care Provider] - Follow up as needed TRAVEL OUTSIDE OF THE [place] IN LAST 30 DAYS: No - HPI Notes: 68-year-old female stepped on a child's toy on the floor at home about 1 hour ago and lost her balance and fell striking her right hip and right ankle on the floor. She denies injury to the head or neck. Pain primarily and right hip and right ankle. EMS was unable to obtain IV during transport and apparently gave the patient 2 doses of fentanyl intranasal. Presently reports pain 7 out of 10. Patient states she is not currently taking any type of anticoagulant. Pertinent prior history: Diabetes mellitus type 2 Hyperlipidemia Hypertension - Related Data Allergies/Adverse Reactions: No Known Allergies Allergy (Verified 05/23/18 08:43) Past Medical History - General Information source: Patient, Relative - Social History Smoking Status: Never Smoker Chew tobacco use (# tins/day): No Frequency of alcohol use: None Drug Abuse: None Family History: None Patient has suicidal ideation: No Patient has homicidal ideation: No - Past Medical History Cardiac Medical History: Reports: Hx Hypercholesterolemia, Hx Hypertension Denies: Hx Congestive Heart Failure, Hx Coronary Artery Disease, Hx Heart Attack Pulmonary Medical History: Denies: Hx Asthma, Hx Bronchitis, Hx COPD, Hx Pneumonia, Hx Tuberculosis Neurological Medical History: Denies: Hx Cerebrovascular Accident, Hx Seizures, Hx Parkinson's Disease Endocrine Medical History: Reports: Hx Diabetes Mellitus Type 2 Renal/ Medical History: Denies: Hx End Stage Renal Disease, Hx Kidney Stones GI Medical History: Reports: Hx Gastroesophageal Reflux Disease. Denies: Hx Cirrhosis, Hx Hepatitis, Hx Hiatal Hernia, Hx Ulcer Musculoskeletal Medical History: Reports Hx Arthritis, Denies Hx Multiple Sclerosis Psychiatric Medical History: Reports: Hx Depression Denies: Hx Bipolar Disorder, Hx Schizophrenia Infectious Medical History: Denies: Hx Hepatitis Past Surgical History: Reports: Hx Abdominal Surgery - jaclyn in stomach, Hx Section, Hx Cholecystectomy. Denies: Hx Hysterectomy, Hx Mastectomy, Hx Open Heart Surgery, Hx Pacemaker - Immunizations Hx Diphtheria, Pertussis, Tetanus Vaccination: No Review of Systems - Review of Systems Notes: Constitutional: Negative for fever. HENT: Negative for sore throat. Eyes: Negative for visual changes. Cardiovascular: Negative for chest pain. Respiratory: Negative for shortness of breath. Gastrointestinal: Negative for abdominal pain, vomiting or diarrhea. Genitourinary: Negative for dysuria. Musculoskeletal: As per HPI. Skin: Negative for rash. Neurological: Negative for headaches, weakness or numbness. 10 point ROS negative except as marked above and in HPI. Physical Exam - Vital signs Vitals: Resp BP Pulse Ox 19 179/76 H 98 05/04/19 21:52 05/04/19 21:52 05/04/19 21:52 - Notes Notes: GENERAL: Female patient approximately stated age moderately obese appearing in mild distress due to pain. SKIN: Good turgor no rashes. HEAD: Normocephalic atraumatic. EYES: PERRLA. EOMI. Conjunctivae and sclerae clear. EARS: CANALS AND TMS CLEAR. NOSE: CLEAR. MOUTH: Moist mucosa. Good dentition. No stridor or edema. No drooling. NECK: Supple. No masses or thyromegaly. No adenopathy. Carotids 2+ without bruits. No JVD. BACK: Symmetrical without tenderness. CHEST: Respirations unlabored. Breath sounds clear and symmetrical. HEART: Regular rhythm. No murmur gallop or rub. ABDOMEN: Soft nontender without masses, organomegaly or rebound. Bowel sounds normally active. No bruits. GENITALIA: Deferred. EXTREMITIES: Very tender over right hip and persist movement in all planes. The right lower extremity appears shortened and externally rotated no edema. No calf tenderness. Cap refill less than 1.5 seconds. Dorsalis pedis and posterior tibial pulses 3+ and symmetrical. NEUROLOGICAL: GCS 15. Alert and oriented x3. Fluent speech. Cranial nerves II through XII intact. Sensorimotor and cerebellar normal. Normal tone. PSYCHIATRIC: Appropriate affect. Course - Re-evaluation Re-evalutation: 05/04/19 23:30 Plain films of the right femur and right ankle reported as negative per radiologist. I am concerned about occult fracture of the right hip and will obtain a CT scan. Patient will remain n.p.o. and we will give her some IV fentanyl and normal saline. 05/05/19 01:09 Good pain relief with IV fentanyl. No fractures identified on imaging. Patient is chronically anemic and is near her usual baseline of 7 g of hemoglobin. No evidence of any acute bleeding. She is more comfortable and feels comfortable going home at this point but will have some difficulty with ambulation and needs a walker. We do not have a walker tonight after discussion with patient and her family is agreed that she will remain in the ER overnight. A.m. consult with social work/case management to be obtained for needs assessment. - Vital Signs Vital signs: Temp Pulse Resp BP Pulse Ox 98.1 F 86 15 160/51 H 100 05/04/19 21:57 05/04/19 21:57 05/05/19 00:00 05/04/19 22:01 05/05/19 00:00 - Laboratory Result Diagrams: 05/04/19 23:54 05/04/19 23:54 Laboratory results interpreted by me: 05/04/19 05/04/19 23:54 23:54 RBC 1.92 L Hgb 7.0 L Hct 20.0 L MCV 104 H MCH 36.1 H RDW 19.0 H Lymph % (Auto) 8.0 L Seg Neutrophils % 86.7 H Potassium 5.1 H BUN 29 H Creatinine 1.37 H Est GFR ( Amer) 46 L Est GFR (MDRD) Non-Af 38 L Glucose 141 H - Diagnostic Test Radiology reviewed: Reports reviewed - Radiologist identifies no fractures on plain films of the right femur and right ankle. No fractures identified on pelvic CT. Discharge - Discharge Clinical Impression: Chronic anemia Contusion of right hip Qualifiers: Encounter type: initial encounter Qualified Code(s): S70.01XA - Contusion of right hip, initial encounter Contusion of right ankle Qualifiers: Encounter type: initial encounter Qualified Code(s): S90.01XA - Contusion of right ankle, initial encounter Fall Qualifiers: Encounter type: initial encounter Qualified Code(s): W19.XXXA - Unspecified fall, initial encounter Condition: Stable Disposition: HOME, SELF-CARE Prescriptions: Tramadol HCl [Ultram 50 mg Tablet] 50 mg PO Q4HP PRN #12 tab PRN Reason: Referrals: LUIS F LECHUGA MD [Primary Care Provider] - Follow up as needed
[2019-05-04] MEDS: FENTANYL CITRATE INJ/PF 100 MCG/2 ML AMPUL IV PRN (23:52)
[2019-05-05 00:25] LABS: ABSOLUTE EOSINOPHILS # (AUTO) 0.1 10^3/uL (0.0-0.6); ABSOLUTE LYMPHOCYTES (AUTO) 0.8 10^3/uL (0.5-4.7); ABSOLUTE MONOCYTES (AUTO) 0.4 10^3/uL (0.1-1.4); ABSOLUTE NEUT (AUTO) 8.2 10^3/uL (1.7-8.2); BASOPHILS % (AUTO) 0.4 % (0-2); EOSINOPHILS % (AUTO) 1.1 % (0-6); MEAN CORPUSCULAR HEMOGLOBIN 36.1 pg (27.0-33.4); MEAN CORPUSCULAR HGB CONC 34.7 g/dL (32.0-36.0); MEAN CORPUSCULAR VOLUME 104 fl (80-97); MONOCYTES % (AUTO) 3.8 % (3-13); PLATELET COUNT 341 10^3/uL (150-450); RED BLOOD COUNT 1.92 10^6/uL (3.72-5.28); SEGMENTED NEUTROPHILS % (AUTO) 86.7 % (42-78); TOTAL CELLS COUNTED % (AUTO) 100 %; WHITE BLOOD COUNT 9.4 10^3/uL (4.0-10.5)
[2019-05-05 00:29] LABS: INTERNATIONAL RATION (INR) 1.12; PROTHROMBIN TIME 14.5 SEC (11.4-15.4)
[2019-05-05 00:30] LABS: PARTIAL THROMBOPLASTIN TIME 30.6 SEC (23.5-35.8)
--- NOTE | 2019-05-05 00:37 | RADIOLOGY REPORT (SQ) ---
CLINICAL HISTORY: pain/tenderness right hip s/p fall with neg plain COMPARISON: None. TECHNIQUE: CT PELVIS WITHOUT IV CONTRAST on 05/04/2019 11:21 PM GRADUATE RECRUITER This exam was performed according to our departmental dose-optimization program, which includes automated exposure control, adjustment of the mA and/or kV according to patient size and/or use of iterative reconstruction technique. FINDINGS: There is moderate distal colonic diverticulosis. There is mild to moderate narrowing of both hip joints. Urinary bladder is unremarkable. There is no free fluid. Appendix is normal. Uterus is small in size. Skeleton: There are no acute osseous findings. No suspicious bony lesions. IMPRESSION: No definite acute fracture.
[2019-05-05 00:41] LABS: ALBUMIN 3.6 g/dL (3.5-5.0); ALKALINE PHOSPHATASE 83 U/L (38-126); ANION GAP 12 (5-19); ASPARTATE AMINO TRANSFERASE 16 U/L (14-36); BILIRUBIN,DIRECT 0.1 mg/dL (0.0-0.4); BILIRUBIN,TOTAL 0.7 mg/dL (0.2-1.3); BLOOD UREA NITROGEN 29 mg/dL (7-20); CALCIUM 8.8 mg/dL (8.4-10.2); CARBON DIOXIDE 23 mmol/L (22-30); CHLORIDE 105 mmol/L (98-107); GLUCOSE 141 mg/dL (75-110); POTASSIUM 5.1 mmol/L (3.6-5.0); TOTAL PROTEIN 6.4 g/dL (6.3-8.2)
[2019-05-05] MEDS: FENTANYL CITRATE INJ/PF 100 MCG/2 ML AMPUL IV PRN ×5 (01:19→09:44)
[2019-05-05] MEDS ORDERED: LISINOPRIL 10 MG TABLET PO ONE (08:20)
[2019-05-05] MEDS ORDERED: OXYCODONE-ACETAMINOPHEN 5-325 MG TABLET PO ONE (11:37)
--- NOTE | 2019-05-05 13:31 | RADIOLOGY REPORT (SQ) ---
EXAM DESCRIPTION: CT LUMBAR SPINE WITHOUT COMPLETED DATE/TIME: 05/05/2019 1:15 pm REASON FOR STUDY: pain, fall COMPARISON: CT abdomen from May of 2018. TECHNIQUE: Axial images acquired through the lumbar spine without intravenous contrast. Images revi ewed with lung, soft tissue and bone windows. Reconstructed coronal and sagittal MPR images reviewed . All images stored on PACS. All CT scanners at this facility use dose modulation, iterative reconstruction, and/or weight based d osing when appropriate to reduce radiation dose to as low as reasonably achievable (ALARA). [facility]: Dose Right [facility]: CareDose [facility]: Dose Right [facility]: Teradose 4D [facility]: [employer] RADIATION DOSE: mGy. LIMITATIONS: None. FINDINGS: SEGMENTATION: Normal. No transitional anatomy. ALIGNMENT: Very slight scoliosis. No significant listhesis. VERTEBRAL BODIES: Mild upper endplate compression deformities at several levels. Most notable at L1. These changes all look chronic. No acute vertebral compression fracture demonstrated. DISCS: Disc space narrowing at L4-5 and L5-S1 particularly. Also L1-2. PEDICLES, TRANSVERSE PROCESSES: Short pedicles, intact. FACETS, POSTERIOR ELEMENTS: Multilevel facet ankylosis and arthropathy. Relatively solid osseous fus ion throughout the lower facets. There is multilevel significant central canal narrowing. There is also multilevel foraminal stenosis. HARDWARE: None in the spine. VISUALIZED RIBS: No fractures. SOFT TISSUES: No significant or acute finding in adjacent soft tissues. OTHER: No other significant finding. IMPRESSION: 1. Chronic appearing compression deformities, similar appearance since May. Most conspicuous at L1. No acute compression fracture identified. 2. Multilevel degenerative disc and facet arthropathy. Multilevel facet ankylosis and overgrowth. S denis stenosis at multiple levels. TECHNICAL DOCUMENTATION: JOB ID: [id number] Quality ID # [id number]: Final reports with documentation of one or more dose reduction techniques (e.g., Au tomated exposure control, adjustment of the mA and/or kV according to patient size, use of iterative reconstruction technique) 2010 [employer]- All Rights Reserved Reading location - IP/workstation name: [email or web address]
--- NOTE | 2019-05-05 14:17 | ER Document Report ---
ED General - General Chief Complaint: Fall Stated Complaint: FALL Time Seen by Provider: 05/04/19 22:40 Primary Care Provider: LUIS F LECHUGA MD [Primary Care Provider] - Follow up as needed TRAVEL OUTSIDE OF THE [place] IN LAST 30 DAYS: No - HPI Notes: Patient is a 68-year-old female with known chronic lower back pain who presents to the emergency department for evaluation after a fall. In short, the care of this patient was turned over to me at the beginning of my shift. The patient was initially seen after tripping on a toy, falling onto her right buttock and hip. She had pain in her right lower back, which radiated into her right hip and down to her right knee. She denies any numbness or tingling. No bowel or bladder incontinence, no saddle anesthesia, no focal numbness or weakness. Patient was initially just waiting for social insurance analyst consult to obtain a walker. It was mention to me by nursing that the patient was requiring a significant amount of fentanyl to control her pain. I wanted to independently evaluate the patient. She states she was getting relief from the fentanyl for short amount of time, but then her pain was severe. - Related Data Allergies/Adverse Reactions: No Known Allergies Allergy (Verified 05/05/19 07:52) Past Medical History - General Information source: Patient, Relative - Social History Smoking Status: Never Smoker Chew tobacco use (# tins/day): No Frequency of alcohol use: None Drug Abuse: None Family History: None Patient has suicidal ideation: No Patient has homicidal ideation: No - Past Medical History Cardiac Medical History: Reports: Hx Hypercholesterolemia, Hx Hypertension Denies: Hx Congestive Heart Failure, Hx Coronary Artery Disease, Hx Heart Attack Pulmonary Medical History: Denies: Hx Asthma, Hx Bronchitis, Hx COPD, Hx Pneumonia, Hx Tuberculosis Neurological Medical History: Denies: Hx Cerebrovascular Accident, Hx Seizures, Hx Parkinson's Disease Endocrine Medical History: Reports: Hx Diabetes Mellitus Type 2 Renal/ Medical History: Denies: Hx End Stage Renal Disease, Hx Kidney Stones GI Medical History: Reports: Hx Gastroesophageal Reflux Disease. Denies: Hx Cirrhosis, Hx Hepatitis, Hx Hiatal Hernia, Hx Ulcer Musculoskeletal Medical History: Reports Hx Arthritis, Denies Hx Multiple Sclerosis Psychiatric Medical History: Reports: Hx Depression Denies: Hx Bipolar Disorder, Hx Schizophrenia Infectious Medical History: Denies: Hx Hepatitis Past Surgical History: Reports: Hx Abdominal Surgery - jaclyn in stomach, Hx Section, Hx Cholecystectomy. Denies: Hx Hysterectomy, Hx Mastectomy, Hx Open Heart Surgery, Hx Pacemaker - Immunizations Hx Diphtheria, Pertussis, Tetanus Vaccination: No Physical Exam - Vital signs Vitals: Resp BP Pulse Ox 19 179/76 H 98 05/04/19 21:52 05/04/19 21:52 05/04/19 21:52 - Notes Notes: Vital signs reviewed, please refer to chart. Head is normocephalic, atraumatic. Pupils equal round, reactive to light. Neck is supple without meningismus. Heart is regular rate and rhythm. Lungs are clear to auscultation bilaterally. Abdomen is soft, nontender, normoactive bowel sounds throughout. Extremities without cyanosis, clubbing. Examination of the spine yields near global lumbar tenderness to palpation without obvious deformity. Unable to perform strength or straight leg testing of the lower extremity secondary to pain. No obvious deformity at the hip or knee. Neurovascularly intact. She is markedly tender over the right greater trochanter. Course - Re-evaluation Re-evalutation: 05/05/19 14:14 Patient presents emergency department for evaluation. She was initially seen by my colleague. The patient has a known anemia, states that hemoglobin of 7 is near her baseline, and feels comfortable with discharge at that level. She had CT scan of her hip, plain films as documented, no acute fractures noted. I did order CT scan of the lumbar spine, and changed her medication to Percocet. She had much more significant and long-lasting pain relief with the Percocet. The patient states she would like to try and go home. She had a bedside commode and walker ordered by this provider. She does not have any stairs in her house. She does have a daughter and son-in-law to provide support. Again the patient would like to try to go home. I will send her home with a small amount of Percocet and close follow-up. She is to return to the emergency department with worsening or new concerning symptoms of any sort. - Vital Signs Vital signs: Temp Pulse Resp BP Pulse Ox 98.8 F 86 17 156/55 H 99 05/05/19 13:38 05/04/19 21:57 05/05/19 14:01 05/05/19 14:01 05/05/19 14:01 - Laboratory Result Diagrams: 05/04/19 23:54 05/04/19 23:54 Laboratory results interpreted by me: 05/04/19 05/04/19 23:54 23:54 RBC 1.92 L Hgb 7.0 L Hct 20.0 L MCV 104 H MCH 36.1 H RDW 19.0 H Lymph % (Auto) 8.0 L Seg Neutrophils % 86.7 H Potassium 5.1 H BUN 29 H Creatinine 1.37 H Est GFR ( Amer) 46 L Est GFR (MDRD) Non-Af 38 L Glucose 141 H Discharge - Discharge Clinical Impression: Chronic anemia Contusion of right hip Qualifiers: Encounter type: initial encounter Qualified Code(s): S70.01XA - Contusion of right hip, initial encounter Contusion of right ankle Qualifiers: Encounter type: initial encounter Qualified Code(s): S90.01XA - Contusion of right ankle, initial encounter Fall Qualifiers: Encounter type: initial encounter Qualified Code(s): W19.XXXA - Unspecified fall, initial encounter Condition: Stable Disposition: HOME, SELF-CARE Instructions: Contusion ([facility]) Additional Instructions: No clear, new fractures were seen on your images today. Follow-up closely with your primary care provider. Please use walker as needed for ambulation. Take Percocet as needed for severe pain. Please watch for dizziness, drowsiness, con stipation with this medication. Return immediately to the emergency department if you develop worsening or new concerning symptoms of any sort. Prescriptions: Tramadol HCl [Ultram 50 mg Tablet] 50 mg PO Q4HP PRN #12 tab PRN Reason: Oxycodone HCl/Acetaminophen [Percocet 5-325 mg Tablet] 1 tab PO Q4H PRN #15 tablet PRN Reason: Referrals: LUIS F LECHUGA MD [Primary Care Provider] - Follow up as needed
[2019-05-05 14:23] VITALS: BP 149/56
== END 2019-05-05 14:46 | disposition home or self-care (01) ==
LOC: ER 21:43
DX: S70.01XA Contusion of right hip, initial encounter (principal); S90.01XA Contusion of right ankle, initial encounter; M54.5 Low back pain; M25.551 Pain in right hip; M25.561 Pain in right knee; W01.0XXA Fall on same level from slipping, tripping and stumbling without subsequent striking against object, initial encounter; D64.9 Anemia, unspecified; I10 Essential (primary) hypertension; E11.9 Type 2 diabetes mellitus without complications
CPT/HCPCS: 99284; 96361; 96374; 36415; 85025; 85610; 85730; 80053; 73610; 73552; 72131; 72192; J3010 ×2; A9270 ×2; J7030

== ENCOUNTER 2019-05-11 17:58 | Emergency (ER) | payer MEDICARE, MEDICAID ==
--- NOTE | 2019-05-11 19:28 | ER Document Report ---
ED Medical Screen (RME) - General Chief Complaint: Leg Swelling Stated Complaint: LEG SWELLING Time Seen by Provider: 05/11/19 19:17 Primary Care Provider: LUIS F LECHUGA MD [Primary Care Provider] - Follow up as needed Notes: Patient is a 68-year-old female who presents the emergency department with a chief complaint of right lower leg swelling. On 04 May she ended up tripping over a toy and falling on her right buttock and hip. Patient states that she continues to have pain and now she has swelling to the right leg. Patient states that she has been mainly in bed since then. Patient states that she has also been weak. In the last time she was here her hemoglobin was 7.0. Exam: 3+ pitting edema to right lower extremity. 1+ pitting edema to left lower extremity. I have greeted and performed a rapid initial assessment of this patient. A comprehensive ED assessment and evaluation of the patient, analysis of test results and completion of medical decision making process will be conducted by an additional ED providers. TRAVEL OUTSIDE OF THE [place] IN LAST 30 DAYS: No - Related Data Allergies/Adverse Reactions: No Known Allergies Allergy (Verified 05/05/19 07:52) Past Medical History - Past Medical History Cardiac Medical History: Reports: Hx Hypercholesterolemia, Hx Hypertension Denies: Hx Congestive Heart Failure, Hx Coronary Artery Disease, Hx Heart Attack Pulmonary Medical History: Denies: Hx Asthma, Hx Bronchitis, Hx COPD, Hx Pneumonia, Hx Tuberculosis Neurological Medical History: Denies: Hx Cerebrovascular Accident, Hx Seizures, Hx Parkinson's Disease Endocrine Medical History: Reports: Hx Diabetes Mellitus Type 2 Renal/ Medical History: Denies: Hx End Stage Renal Disease, Hx Kidney Stones GI Medical History: Reports: Hx Gastroesophageal Reflux Disease. Denies: Hx Cirrhosis, Hx Hepatitis, Hx Hiatal Hernia, Hx Ulcer Musculoskeltal Medical History: Reports Hx Arthritis, Denies Hx Multiple Sclerosis Psychiatric Medical History: Reports: Hx Depression Denies: Hx Bipolar Disorder, Hx Schizophrenia Infectious Medical History: Denies: Hx Hepatitis Past Surgical History: Reports: Hx Abdominal Surgery - jaclyn in stomach, Hx Section, Hx Cholecystectomy. Denies: Hx Hysterectomy, Hx Mastectomy, Hx Open Heart Surgery, Hx Pacemaker - Immunizations Hx Diphtheria, Pertussis, Tetanus Vaccination: No Physical Exam - Vital signs Vitals: Temp Pulse Resp BP Pulse Ox 98.9 F 90 16 152/73 H 96 05/11/19 18:27 05/11/19 18:27 05/11/19 18:27 05/11/19 18:27 05/11/19 18:27 Course - Vital Signs Vital signs: Temp Pulse Resp BP Pulse Ox 98.9 F 90 16 152/73 H 96 05/11/19 18:27 05/11/19 18:27 05/11/19 18:27 05/11/19 18:27 05/11/19 18:27 Doctor's Discharge - Discharge Referrals: LUIS F LECHUGA MD [Primary Care Provider] - Follow up as needed
--- NOTE | 2019-05-11 20:49 | RADIOLOGY REPORT (SQ) ---
EXAM DESCRIPTION: Right tibia/fibula RadLex: XR TIBIA FIBULA 2 VIEWS Views: 2 CLINICAL HISTORY: 68 years Female, swelling; fall COMPARISON: None. FINDINGS: Acute fractures extend sagittally through the medial portion of the median eminence into the proximal tibial metaphysis, and transversely through the medial portion of the proximal tibial metaphysis, with depression of the medial tibial plateau. Distal shaft of the tibia remains intact. Fibula is intact. The joint effusion is noted. There are mild degenerative changes at the knee, with mild reactive osteophytes. IMPRESSION: 1. Acute depressed medial tibial plateau fracture.
--- NOTE | 2019-05-11 21:24 | ER Document Report ---
Doctor's Note Notes: 05/11/19 21:24 Medical Sales Consultant reported to me that patient is unofficially negative for DVT.
--- NOTE | 2019-05-11 22:05 | RADIOLOGY REPORT (SQ) ---
EXAM DESCRIPTION: RadLex: US EXTREMITY VEINS UNILATERAL CLINICAL HISTORY: 68 years Female; RLE swelling TECHNIQUE: Multiple grayscale sonographic images of the leg were obtained utilizing a high-frequency linear array transducer supplemented with color Doppler, compression and augmentation techniques. COMPARISON: None. FINDINGS: Right leg veins: Common femoral: normal Greater saphenous: normal upper Superficial femoral: normal mid Superficial femoral: normal lower Superficial femoral: normal Popliteal: normal Posterior tibial: normal IMPRESSION: 1. No sonographic evidence for right lower extremity deep venous thrombosis.
[2019-05-11 22:54] LABS: ABSOLUTE EOSINOPHILS # (AUTO) 0.1 10^3/uL (0.0-0.6); ABSOLUTE LYMPHOCYTES (AUTO) 0.7 10^3/uL (0.5-4.7); ABSOLUTE MONOCYTES (AUTO) 0.4 10^3/uL (0.1-1.4); ABSOLUTE NEUT (AUTO) 4.4 10^3/uL (1.7-8.2); BASOPHILS % (AUTO) 0.5 % (0-2); EOSINOPHILS % (AUTO) 1.8 % (0-6); HEMATOCRIT 17.7 % (36.0-47.0); LYMPHOCYTES % (AUTO) 12.8 % (13-45); MEAN CORPUSCULAR HEMOGLOBIN 37.1 pg (27.0-33.4); MEAN CORPUSCULAR HGB CONC 35.3 g/dL (32.0-36.0); MEAN CORPUSCULAR VOLUME 105 fl (80-97); MONOCYTES % (AUTO) 6.7 % (3-13); PLATELET COUNT 383 10^3/uL (150-450); RED BLOOD COUNT 1.68 10^6/uL (3.72-5.28); RED CELL DISTRIBUTION WIDTH 17.1 % (11.5-14.0); SEGMENTED NEUTROPHILS % (AUTO) 78.2 % (42-78); TOTAL CELLS COUNTED % (AUTO) 100 %; WHITE BLOOD COUNT 5.6 10^3/uL (4.0-10.5)
[2019-05-11 22:58] LABS: HEMOGLOBIN 6.2 g/dL (12.0-15.5)
[2019-05-11 23:11] LABS: ALBUMIN 3.5 g/dL (3.5-5.0); ALKALINE PHOSPHATASE 117 U/L (38-126); ANION GAP 9 (5-19); ASPARTATE AMINO TRANSFERASE 23 U/L (14-36); BILIRUBIN,DIRECT 0.3 mg/dL (0.0-0.4); BILIRUBIN,TOTAL 0.7 mg/dL (0.2-1.3); BLOOD UREA NITROGEN 29 mg/dL (7-20); CARBON DIOXIDE 24 mmol/L (22-30); CHLORIDE 108 mmol/L (98-107); GLUCOSE 160 mg/dL (75-110); POTASSIUM 4.6 mmol/L (3.6-5.0); TOTAL PROTEIN 6.4 g/dL (6.3-8.2)
[2019-05-11] MEDS ORDERED: NORMAL SALINE 250 ML IV PRN ×2 (23:20)
--- NOTE | 2019-05-11 23:32 | ER Document Report ---
ED General - General Chief Complaint: Leg Swelling Stated Complaint: LEG SWELLING Time Seen by Provider: 05/11/19 19:17 Primary Care Provider: LUIS F LECHUGA MD [Primary Care Provider] - Follow up as needed TRAVEL OUTSIDE OF THE [place] IN LAST 30 DAYS: No - HPI Notes: 68-year-old female complaining of severe pain and swelling of right knee following trauma on 05/05/2019 after a fall at her home. I initially saw the patient in the emergency department on that date. The patient reported she had stepped on a child's toy on the floor at home about 1 hour prior to arrival and lost her balance and fell striking her right hip and right ankle on the floor. She denies injury to the head or neck. Pain primarily and right hip and right ankle. X-rays at that time showed osteopenia but there was no obvious fracture and radiologist also read this is negative for fracture. Because she had a lot of persistent discomfort over the right hip I went ahead and obtained a CT of the pelvis at that time and again did not demonstrate any acute fracture. Patient remained in the emergency department for an extended period due to difficulty obtaining a walker for her at home. She was subsequently rechecked by 1 of the emergency providers prior to discharge and they decided to obtain im aging of her lower back with a CT scan. This showed some old compressions but nothing looked acute and again diffuse osteopenia. Patient was sent home with some Percocet. She is taken all it up and comes back in saying the pain and swelling over the medial aspect of the right knee are worse. She denies emphatically any new trauma. 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 Last transfusion was greater than 1 month ago. Diabetes mellitus type 2 Hyperlipidemia Hypertension - Related Data Allergies/Adverse Reactions: No Known Allergies Allergy (Verified 05/05/19 07:52) Home Medications: Lisinopril Past Medical History - General Information source: Patient - Social History Smoking Status: Never Smoker Frequency of alcohol use: None Drug Abuse: None Family History: None Patient has suicidal ideation: No Patient has homicidal ideation: No - Past Medical History Cardiac Medical History: Reports: Hx Hypercholesterolemia, Hx Hypertension Denies: Hx Congestive Heart Failure, Hx Coronary Artery Disease, Hx Heart Attack Pulmonary Medical History: Denies: Hx Asthma, Hx Bronchitis, Hx COPD, Hx Pneumonia, Hx Tuberculosis Neurological Medical History: Denies: Hx Cerebrovascular Accident, Hx Seizures, Hx Parkinson's Disease Endocrine Medical History: Reports: Hx Diabetes Mellitus Type 2 Renal/ Medical History: Denies: Hx End Stage Renal Disease, Hx Kidney Stones GI Medical History: Reports: Hx Gastroesophageal Reflux Disease. Denies: Hx Cirrhosis, Hx Hepatitis, Hx Hiatal Hernia, Hx Ulcer Musculoskeletal Medical History: Reports Hx Arthritis, Denies Hx Multiple Sclerosis Psychiatric Medical History: Reports: Hx Depression Denies: Hx Bipolar Disorder, Hx Schizophrenia Infectious Medical History: Denies: Hx Hepatitis Past Surgical History: Reports: Hx Abdominal Surgery - jaclyn in stomach, Hx Section, Hx Cholecystectomy. Denies: Hx Hysterectomy, Hx Mastectomy, Hx Open Heart Surgery, Hx Pacemaker - Immunizations Hx Diphtheria, Pertussis, Tetanus Vaccination: No Review of Systems - Review of Systems Notes: Constitutional: Negative for fever. HENT: Negative for sore throat. Eyes: Negative for visual changes. Cardiovascular: Negative for chest pain. Respiratory: Negative for shortness of breath. Gastrointestinal: Negative for abdominal pain, vomiting or diarrhea. No melena or hematochezia. Genitourinary: Negative for dysuria. Musculoskeletal: As per HPI. Skin: Negative for rash. Neurological: Negative for headaches, weakness or numbness. No syncope or presyncope. 10 point ROS negative except as marked above and in HPI. Physical Exam - Vital signs Vitals: Temp Pulse Resp BP Pulse Ox 98.9 F 90 16 152/73 H 96 05/11/19 18:27 05/11/19 18:27 05/11/19 18:27 05/11/19 18:27 05/11/19 18:27 - Notes Notes: GENERAL: Obese, somewhat chronically ill-appearing female approximately stated age reporting moderate pain. SKIN: Pale. Good turgor no rashes. HEAD: Normocephalic atraumatic. EYES: PERRLA. EOMI. Conjunctivae and sclerae clear. EARS: CANALS AND TMS CLEAR. NOSE: CLEAR. MOUTH: Moist mucosa. Good dentition. No stridor or edema. No drooling. NECK: Supple. No masses or thyromegaly. No adenopathy. Carotids 2+ without bruits. No JVD. BACK: Symmetrical without tenderness. CHEST: Respirations unlabored. Breath sounds clear and symmetrical. HEART: Regular rhythm. No murmur gallop or rub. ABDOMEN: Obese soft nontender without masses, organomegaly or rebound. Bowel sounds normally active. No bruits. GENITALIA: Deferred. EXTREMITIES: Patient has ecchymosis over the medial aspect of the right knee joint with small effusion present. This area is tender to palpation and she resists movement due to pain. She has 1+ edema of the right lower leg down to the foot. Cap refill less than 1.5 seconds. Dorsalis pedis and posterior t ibial pulses 3+ and symmetrical. NEUROLOGICAL: GCS 15. Alert and oriented x3. Fluent speech. Cranial nerves II through XII intact. Sensorimotor and cerebellar normal. Normal tone. PSYCHIATRIC: Appropriate affect. Course - Re-evaluation Re-evalutation: 05/11/19 23:35 Patient denies any new trauma. Case was discussed with Dr. Rubin ordonez the orthopedist sawmill production worker. He recommends application of a knee immobilizer and limited weightbearing with assistance of walker. He will see her for office follow-up electively. She needs to be transfused at this time but she does not appear to be acutely bleeding I think she can be transfused in the emergency department and follow-up with her primary care physician. These recommendations have been discussed with her family. 05/12/19 07:24 Patient has been transfused in the ED. Hospitalist was not willing to admit patient. She has been placed in knee immobilizer and has a walker at home. She would like to get a wheelchair and will remain here to talk with social work about this. Thereafter she will be discharged. - Vital Signs Vital signs: Temp Pulse Resp BP Pulse Ox 98.4 F 77 18 152/54 H 97 05/12/19 06:09 05/12/19 06:09 05/12/19 06:09 05/12/19 06:09 05/12/19 06:09 - Laboratory Result Diagrams: 05/11/19 22:20 05/11/19 22:20 Laboratory results interpreted by me: 05/11/19 05/11/19 05/11/19 22:20 22:20 23:43 RBC 1.68 L Hgb 6.2 L Hct 17.7 L MCV 105 H MCH 37.1 H RDW 17.1 H Lymph % (Auto) 12.8 L Seg Neutrophils % 78.2 H Chloride 108 H BUN 29 H Creatinine 1.36 H Est GFR ( Amer) 47 L Est GFR (MDRD) Non-Af 39 L Glucose 160 H Crossmatch See Detail - Diagnostic Test Radiology reviewed: Reports reviewed Radiology results interpreted by me: 05/11/19 23:35 Radiologist identifies compression fracture of the medial tibial plateau on the right. Doppler ultrasound negative for DVT. Discharge - Discharge Clinical Impression: Tibial plateau fracture right lower extr Condition: Stable Disposition: HOME, SELF-CARE Additional Instructions: Use knee immobilizer and walker as instructed. Follow-up with referral orthopedist within the next 3 to 5 days. Prescriptions: Oxycodone HCl/Acetaminophen [Percocet 5-325 mg Tablet] 1 - 2 tab PO Q4H PRN #25 tablet PRN Reason: Referrals: LUIS F LECHUGA MD [Primary Care Provider] - Follow up as needed RUBIN SANCHEZ DO [ACTIVE STAFF] - Follow up as needed
[2019-05-11] MEDS ORDERED: OXYCODONE-ACETAMINOPHEN 5-325 MG TABLET PO ONE (23:34)
[2019-05-12 09:11] VITALS: BP 153/66
== END 2019-05-12 10:25 | disposition home or self-care (01) ==
LOC: ER 17:58
DX: S82.141A Displaced bicondylar fracture of right tibia, initial encounter for closed fracture (principal); M79.89 Other specified soft tissue disorders; W18.30XA Fall on same level, unspecified, initial encounter; E11.9 Type 2 diabetes mellitus without complications; E78.00 Pure hypercholesterolemia, unspecified; D64.9 Anemia, unspecified; I10 Essential (primary) hypertension; Z90.49 Acquired absence of other specified parts of digestive tract
CPT/HCPCS: 99284; 86900; 86901; 36415; 36430; 86850; 85025; 80053; 86920; 93971; 73590; L1830; P9016; A9270; J7050

== ENCOUNTER → 2019-07-10 | Outpatient (CLI) | payer MEDICARE, MEDICAID ==
--- NOTE | 2019-07-10 17:32 | XCELERA REPORT ---
[address] [place] [facility] [address] Lower Extremity Venous Evaluation Procedure: Color flow and duplex imaging of the veins of the right lower extremity as well as the left Common Femoral vein. Right Sided Venous Evaluation Normal vessel filling wall to wall, compression and augmentation as well as Colour flow down to the infrageniculate veins. Left Sided Venous Evaluation The left common femoral vein is fully compressible. Spontaneous and phasic flow is present in the left common femoral vein. Interpretation Summary No duplex evidence of DVT or obstruction in the right lower extremity nor in the left Common Femoral vein. Name: JOSE JUAN DON Age: 68 yrs Gender: Female : 1950 Patient Status: Outpatient Patient Location: Study Date: 07/10/2019 03:13 PM Reason For Study: RLE ACUTE EMBOLISM AND THROMBOSIS Ordering Physician: DAVE ARELLANO Performed By: Ari Akins : DAVE ARELLANO > Justyn Jenkins
== END ==
LOC: SP 14:25
PROVIDERS: ATTEND Physician Assistant
DX: I82.4Z1 Acute embolism and thrombosis of unspecified deep veins of right distal lower extremity (principal)
CPT/HCPCS: 93971